=== PATIENT | female | born 1995 | race African-American/Black ===

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

== ENCOUNTER → 2018-09-01 | Day surgery (SDC) | payer OTHER ==
[~2018-09-01] VITALS: Wt 164.2 kg
[~2018-09-01] MED LIST changes: +ABILIFY MAINTE300 MG PO; +AMOXICILLIN500 M3 PO; +AUGMENTIN 875875 MG PO; +BACTRIM DS 8001 TAB PO; +BENZTROPINE MESY1 MG PO; +KETOROLAC10 MG PO; +PRILOSEC20 M1 PO; +PROPRANOLOL HYD10 MG PO; +REMERON15 M2 PO
--- NOTE | ~2018-09-01 | O ---
[place], [place] OPERATIVE NOTE NAME: JAREN GUARDADO UNIT #: [id number] ROOM: DOCTOR: XANDER NIETO DMD BIRTHDATE: [birth year] DOS: PREOPERATIVE DIAGNOSES: Impacted third molars and nonrestorable teeth and anxiety. POSTOPERATIVE DIAGNOSES: Impacted third molars and nonrestorable teeth and anxiety. ANESTHESIA: General anesthesia with endotracheal intubation. FLUIDS: Minimal. ESTIMATED BLOOD LOSS: Minimal. COMPLICATIONS: None. CONDITION: To PACU, stable. DESCRIPTION OF PROCEDURE: The patient was brought to the OR and placed in supine position. IV and EKG lines were placed. Endotracheal intubation and general anesthesia was administered. The patient was prepped and draped for oral procedures. Risks and benefits were explained to the patient prior to surgery. Clinical exam and x-rays taken determined complete bony impaction tooth #1, nonrestorable tooth #2, nonrestorable tooth #15, 18 and 32, soft tissue impaction of 16 and partial bony impaction tooth #17. PROCEDURES PERFORMED: Full thickness flaps in the upper right, upper left and lower left quadrant. Complete extraction of teeth numbers 1, 2, 15, 16, 17, 18 and 32. Minimal alveoplasty sutured with 3-0 Vicryl. Lavaged x 2. Throat pack removed. The patient left the OR in good condition and went to the PACU. XANDER NIETO DMD CM:OPRECORD:OPERATIVE NOTE [id number] XANDER NIETO DMD 09/04/18 1052 interface
[2018-09-01 07:03] VITALS: BP 131/46
[2018-09-01 09:17] VITALS: BP 169/95
[2018-09-01 09:32] VITALS: BP 148/93
[2018-09-01 09:47] VITALS: BP 135/75
[2018-09-01 10:02] VITALS: BP 146/95
[2018-09-01 10:17] VITALS: BP 136/80
== END | disposition home or self-care (01) ==
LOC: SDC 08-28 10:15
DX: K02.9 Dental caries, unspecified (principal); K01.1 Impacted teeth; E66.01 Morbid (severe) obesity due to excess calories; F41.9 Anxiety disorder, unspecified; F32.9 Major depressive disorder, single episode, unspecified; J45.909 Unspecified asthma, uncomplicated; I10 Essential (primary) hypertension; Z87.898 Personal history of other specified conditions; F11.11 Opioid abuse, in remission; Z98.890 Other specified postprocedural states; Z83.3 Family history of diabetes mellitus; Z82.49 Family history of ischemic heart disease and other diseases of the circulatory system; Z88.8 Allergy status to other drugs, medicaments and biological substances; Z79.899 Other long term (current) drug therapy; Z91.018 Allergy to other foods

== ENCOUNTER 2018-09-11 10:19 | Inpatient (IN) | payer OTHER ==
[~2018-09-11] VITALS: Ht 170.1 cm; Wt 159.9 kg
--- NOTE | ~2018-09-11 | CON ---
[place], [place] REPORT OF CONSULTATION NAME: JAREN GUARDADO UNIT #: [id number] ROOM: 425 DOCTOR: XANDER NIETO DMD BIRTHDATE: [birth year] DOS: HISTORY OF PRESENT ILLNESS: Consultation is for pain on the lower left. The patient had third molar extraction under general anesthesia, roughly 2 weeks ago. Extraoral, no swelling noted. No dyspnea, no dysphagia. Intraoral, minimal swelling noted. Tissue looks to be healing adequately. The patient does not complain of any soreness in the upper right, upper left or lower right quadrants, lower left is mild discomfort and malodor on exam. Vicryl sutures still in place and appeared to be resorbing normally. There is a small opening in the left lower mandible. Discussed treatment needed as far as oral hygiene and intraoral irrigation. No alternative treatment is recommended. Does not appear to be infected currently. DISPOSITION: The patient is okay for dental discharge. XANDER NIETO DMD CM:CONSTR:REPORT OF CONSULTATION 0944 09/24/18 0742 interface
--- NOTE | ~2018-09-11 | EKG ---
[place], [place] ELECTROCARDIOGRAM REPORT NAME: JAREN GUARDADO UNIT #: [id number] ROOM: 425 DOCTOR: RAJEEV DRAFT REPORT BIRTHDATE: [birth year] [facility] Test Date: 2018-09-11 Test Time: 16:09:15 Pat Name: JAREN GUARDADO Department: Room: 425 1 Gender: F Public Area Attendant: Elis Charlton : 1995 Requested By: JOSE A STRINGER Order Number: [id number] Reading MD: Kavita Mahmood MD Measurements Intervals [place] Rate: 75 P: -11 CO: 184 QRS: 4 QRSD: 89 T: 12 QT: 398 QTc: 445 Interpretive Statements Sinus rhythm Electronically Signed On 09-15-2018 11:46:37 PST by Kavita Mahmood MD CM:EKGRPT:ELECTROCARDIOGRAM REPORT [id number] JOSE A BOO DRAFT REPORT JOSE A STRINGER
[~2018-09-11 10:19] MED LIST changes: -AMOXICILLIN500 M3 PO; -PROPRANOLOL HYD10 MG PO; -REMERON15 M2 PO
[2018-09-11 11:40] VITALS: BP 143/78
--- NOTE | 2018-09-11 11:40 | NUR ---
Time: 1139 A 23 year old FEMALE admitted to under services of NAHUM WHEATLEY DO. Pt. arrived via ambulatory from CT. Chief complaint: COCAINE ABUSE. DIANDRA GARAY
--- NOTE | 2018-09-11 12:23 | NUR ---
PATIENT MEETS [facility]. CINA=15. PATIENT WANTS TO FOLLOW UP WITH [facility] IN [place] FOR HER AFTERCARE PLAN. [place] STAFF WILL FOLLOW UP WITH PATIENT WITH HER APPOINTMENT. JORDAN BURK B.A. MARKETING OPERATIONS CONSULTANT
[2018-09-11] MEDS ORDERED: PROPRANOLOL HYD10 MG PO (12:32)
[2018-09-11] MEDS ORDERED: REMERON15 M2 PO (12:33)
[2018-09-11] MEDS ORDERED: KETOROLAC10 MG PO (12:34)
[2018-09-11] MEDS ORDERED: AMOXICILLIN500 M3 PO (12:35)
--- NOTE | 2018-09-11 12:51 | NUR ---
[facility] AT [facility]. PATIENT AGREES AND UNDERSTANDS HER AFTERCARE PLAN. JORDAN BURK B.A. VENEER GLUE JOINTER FEEDBACK
[2018-09-11 13:14] LABS: BILIRUBIN NEGATIVE (NEGATIVE); BLOOD NEGATIVE (NEGATIVE); CLARITY SL CLOUDY (CLEAR); COLOR YELLOW (YELLOW); GLUCOSE NEGATIVE (NEGATIVE); KETONE NEGATIVE (NEGATIVE); LEUKO ESTERASE NEGATIVE (NEGATIVE); NITRITE NEGATIVE (NEGATIVE); PH 7.5 (5.0-9.0)
[2018-09-11 13:21] LABS: URINE AMPHETAMINES < 1000 (1000ng/ml); URINE BARBITURATES < 200 (200ng/ml); URINE BENZODIAZEPINES < 200 (200ng/ml); URINE CANNABINOIDS (THC) > 50 (50ng/ml); URINE COCAINE > 300 (300ng/ml); URINE METHADONE < 300 (300ng/ml); URINE OPIATES < 300 (300ng/ml)
[2018-09-11 13:26] LABS: URINE PHENCYCLIDINE < 25 (25ng/ml)
[2018-09-11 13:28] LABS: BASO % 0.2 % (0.0-1.0); EOS # 0.1 10*3/uL (0.0-0.4); EOS % 0.8 % (1.0-4.0); HEMATOCRIT 37.5 % (37.0-47.0); HEMOGLOBIN 12.2 g/dl (12.0-16.0); LYMPH # 2.5 10*3/uL (1.3-4.4); LYMPH % 42.9 % (27.0-41.0); MEAN CELL VOLUME 92.8 fl (81.0-99.0); MEAN CORPUSCULAR HGB 30.2 pg (27.0-31.0); MEAN CORPUSCULAR HGB CONC 32.5 g/dl (33.0-37.0); MONO # 0.4 10*3/uL (0.1-1.0); MONO % 6.8 % (3.0-9.0); NEUT # 2.9 10*3/uL (2.3-7.9); NEUT % 49.1 % (47.0-73.0); PLATELET COUNT AUTOMATED 262 10*3/uL (130-400); RED BLOOD COUNT 4.04 10*6/uL (4.10-5.10); RED CELL DISTRI WIDTH 12.6 % (0-14.5); WHITE BLOOD COUNT 5.9 10*3/uL (4.8-10.8)
[2018-09-11 13:34] LABS: BACTERIA 1+; MUCOUS 1+
[2018-09-11 13:42] LABS: ALBUMIN 3.6 gm/dl (3.1-4.5); ALKALINE PHOSPHATASE 115 U/L (45-117); BUN 13 mg/dl (7-24); CHLORIDE 106 mmol/L (98-107); CREATININE 0.76 mg/dL (0.55-1.02); POTASSIUM 3.9 mmol/L (3.5-5.1); SGOT/AST 25 IU/L (3-35); SGPT/ALT 28 U/L (12-78); SODIUM 140 mmol/L (136-145); TOTAL PROTEIN 8.2 gm/dL (6.4-8.2)
[2018-09-11 13:46] LABS: BETA-HCG, QUANT < 1.0 mIU/mL (1-3); ETHYL ALCOHOL < 3.0 mg/dl (<3)
--- NOTE | 2018-09-11 15:50 | NUR ---
NOTIFIED DR. NIETO OF [facility]. STATED HE WOULD SEE PATIENT TOMORROW.
[2018-09-11 16:00] VITALS: BP 117/50
--- NOTE | 2018-09-11 19:15 | NUR ---
PT RESTING QUIETLY IN BED DURING BEDSIDE SHIFT REPORT. NO S/S OF DISTRESS NOTED. CALL LIGHT IN REACH.
[2018-09-11 20:00] VITALS: BP 135/75
--- NOTE | 2018-09-11 20:14 | NUR ---
PT MEDICATED W/BENTYL FOR STOMACH CRAMPS, VISTARIL FOR ANXIETY AND ZOFRAN FOR C/O NAUSEA. C/O CONSTIPATION BUT REFUSING LAXATIVE UNTIL TOMORROW MORNING. CALL LIGHT IN REACH.
[2018-09-12] VITALS: BP 129/72
--- NOTE | 2018-09-12 06:05 | NUR ---
24 HR chart check completed.
[2018-09-12 08:00] VITALS: BP 128/86
--- NOTE | 2018-09-12 13:00 | NUR ---
PT DENIES ANY NEEDS OR SYMPTOMS OF WITHDRAWAL. ALL SAFETY MEASURES IN PLACE.
--- NOTE | 2018-09-12 13:50 | NUR ---
Shift chart check completed.
--- NOTE | 2018-09-12 14:07 | NUR ---
DR NIETO INTO SEE PT. STATES EVERYTHING LOOKS FINE AND THAT SHE SHOULD RINSE WITH MOUTHWASH PRN.
[2018-09-12 16:00] VITALS: BP 116/54
[2018-09-13] VITALS: BP 122/80
--- NOTE | 2018-09-13 | NUR ---
Patient sleeping. Respirations relaxed and easy. Siderails up . [place]iennes on. DEMARCUS MURRELL
--- NOTE | 2018-09-13 03:48 | NUR ---
24 HR chart check completed.
[2018-09-13 08:00] VITALS: BP 136/75
--- NOTE | 2018-09-13 10:47 | NUR ---
PATIENT COMPLAINS OF BACK PAIN RATED A 5 OR 6. PRN TYLENOL ADMINISTERED.
--- NOTE | 2018-09-13 11:21 | NUR ---
PATIENT STATES THEY ARE CONSTIPATED. HAD ONE SMALL BM YESTERDAY. DOLULAX ADMINSTERED. WILL MONITOR FOR EFFECTIVENESS.
[2018-09-13 16:00] VITALS: BP 122/67
--- NOTE | 2018-09-13 16:36 | NUR ---
MICHAELA MEDINA NP WAS NOTIFIED OF THE PATIENTS COMPLAINT OF A "BUMP" IN THE VAGINAL AREA AND THAT THE PATIENT WISHES TO BE TESTED FOR HEPATITIS.
--- NOTE | 2018-09-13 21:43 | NUR ---
PT DENIES ANY S/S OF WITHDRAWAL. WATCHING MOVIES ON HER CELL PHONE IN BED AT THIS TIME.
[2018-09-14] VITALS: BP 128/78
--- NOTE | 2018-09-14 03:15 | NUR ---
ASSUMED CARE OF THE PATIENT AT THIS TIME. RECEIVED REPORT FROM RODERICK KELLER. PATIENT RESTING COMFORTABLY IN HER BED AT THIS TIME. NO S/S OF DISTRESS. CALL LIGHT WITHIN REACH.
[2018-09-14 07:57] LABS: BASO % 0.2 % (0.0-1.0); EOS # 0.1 10*3/uL (0.0-0.4); EOS % 1.3 % (1.0-4.0); HEMOGLOBIN 11.8 g/dl (12.0-16.0); LYMPH # 2.7 10*3/uL (1.3-4.4); LYMPH % 49.1 % (27.0-41.0); MEAN CELL VOLUME 92.7 fl (81.0-99.0); MEAN CORPUSCULAR HGB 29.6 pg (27.0-31.0); MEAN CORPUSCULAR HGB CONC 31.9 g/dl (33.0-37.0); MEAN PLATELET VOLUME 9.5 fl (9.6-12.3); MONO # 0.4 10*3/uL (0.1-1.0); MONO % 7.9 % (3.0-9.0); NEUT # 2.3 10*3/uL (2.3-7.9); NEUT % 41.3 % (47.0-73.0); PLATELET COUNT AUTOMATED 247 10*3/uL (130-400); RED BLOOD COUNT 3.99 10*6/uL (4.10-5.10); RED CELL DISTRI WIDTH 12.2 % (0-14.5); WHITE BLOOD COUNT 5.5 10*3/uL (4.8-10.8)
[2018-09-14 08:00] VITALS: BP 107/56
--- NOTE | 2018-09-14 11:11 | NUR ---
Discharge instructions reviewed with patient/family. Patient receptive and verbalizes understanding. Follow-up care arranged. Written instructions given to patient/family. DIANDRA GARAY
[2018-09-15 06:06] LABS: HEPATITIS B SURFACE AG Negative (Negative); HEPATITIS C VIRUS ANTIBODY <0.1 s/co (0.0-0.9)
--- NOTE | 2018-11-03 12:57 | NUR ---
PATIENT MEETS [facility]. CINA=15. PATIENT WANTS RESIDENTIAL TREATMENT. [place] STAFF PROVIDED PATIENT WITH A FEW REFFERALS TO DECIDE FROM. [place] STAFF WILL FOLLOW UP WITH PATIENT. JORDAN BURK B.A. CABLE TELEVISION ACCESS COORDINATOR
== END 2018-09-14 11:11 | disposition home or self-care (01) | DRG 897 ==
LOC: 4E 10:19
PROVIDERS: Registered Nurse; ADMIT Internal Medicine
DX: F12.10 Cannabis abuse, uncomplicated (principal); Z68.43 Body mass index [BMI] 50.0-59.9, adult; F14.90 Cocaine use, unspecified, uncomplicated; R03.0 Elevated blood-pressure reading, without diagnosis of hypertension; F41.9 Anxiety disorder, unspecified; J45.909 Unspecified asthma, uncomplicated; E66.01 Morbid (severe) obesity due to excess calories; F32.9 Major depressive disorder, single episode, unspecified; K08.89 Other specified disorders of teeth and supporting structures; R07.9 Chest pain, unspecified; Z91.19 Patient's noncompliance with other medical treatment and regimen; Z83.3 Family history of diabetes mellitus; Z82.49 Family history of ischemic heart disease and other diseases of the circulatory system; Z83.438 Family history of other disorder of lipoprotein metabolism and other lipidemia; Z88.8 Allergy status to other drugs, medicaments and biological substances

== ENCOUNTER 2018-11-03 11:06 | Inpatient (IN) | payer OTHER ==
[~2018-11-03] VITALS: Ht 170.1 cm; Wt 166.3 kg
[~2018-11-03 11:06] MED LIST changes: +AMOXICILLIN500 M3 PO; +PROPRANOLOL HYD10 MG PO; +REMERON15 M2 PO
[2018-11-03 12:00] VITALS: BP 143/82
[2018-11-03] MEDS ORDERED: ZYPREXA10 M1 PO (13:07)
[2018-11-03 13:27] LABS: BASO % 0.3 % (0.0-1.0); EOS # 0.1 10*3/uL (0.0-0.4); EOS % 1.5 % (1.0-4.0); HEMATOCRIT 38.1 % (37.0-47.0); HEMOGLOBIN 12.3 g/dl (12.0-16.0); LYMPH # 3.4 10*3/uL (1.3-4.4); LYMPH % 50.9 % (27.0-41.0); MEAN CELL VOLUME 93.8 fl (81.0-99.0); MEAN CORPUSCULAR HGB 30.3 pg (27.0-31.0); MEAN CORPUSCULAR HGB CONC 32.3 g/dl (33.0-37.0); MEAN PLATELET VOLUME 9.4 fl (9.6-12.3); MONO # 0.5 10*3/uL (0.1-1.0); MONO % 7.4 % (3.0-9.0); NEUT # 2.6 10*3/uL (2.3-7.9); NEUT % 39.7 % (47.0-73.0); PLATELET COUNT AUTOMATED 240 10*3/uL (130-400); RED BLOOD COUNT 4.06 10*6/uL (4.10-5.10); RED CELL DISTRI WIDTH 12.9 % (0-14.5); WHITE BLOOD COUNT 6.6 10*3/uL (4.8-10.8)
[2018-11-03 13:44] LABS: ALBUMIN 3.3 gm/dl (3.1-4.5); ALKALINE PHOSPHATASE 110 U/L (45-117); BUN 11 mg/dl (7-24); CHLORIDE 108 mmol/L (98-107); CREATININE 0.73 mg/dL (0.55-1.02); POTASSIUM 4.1 mmol/L (3.5-5.1); SGOT/AST 26 IU/L (3-35); SGPT/ALT 26 U/L (12-78); SODIUM 141 mmol/L (136-145); TOTAL PROTEIN 7.7 gm/dL (6.4-8.2)
[2018-11-03 13:47] LABS: ETHYL ALCOHOL < 3.0 mg/dl (<3)
[2018-11-03 14:28] LABS: BILIRUBIN NEGATIVE (NEGATIVE); BLOOD NEGATIVE (NEGATIVE); CLARITY CLEAR (CLEAR); COLOR YELLOW (YELLOW); GLUCOSE NEGATIVE (NEGATIVE); KETONE NEGATIVE (NEGATIVE); LEUKO ESTERASE NEGATIVE (NEGATIVE); NITRITE NEGATIVE (NEGATIVE); SPECIFIC GRAVITY 1.025 (1.005-1.030); UROBILINOGEN 0.2 E.U./dl (0.2-1.0)
[2018-11-03 14:34] LABS: BACTERIA 1+; MUCOUS 2+; WBC 0-2 wbc/hpf (0-5)
[2018-11-03 14:37] LABS: URINE AMPHETAMINES < 1000 (1000ng/ml); URINE BARBITURATES < 200 (200ng/ml); URINE BENZODIAZEPINES < 200 (200ng/ml); URINE CANNABINOIDS (THC) > 50 (50ng/ml); URINE COCAINE > 300 (300ng/ml); URINE METHADONE < 300 (300ng/ml); URINE OPIATES < 300 (300ng/ml)
[2018-11-03 14:40] LABS: URINE PHENCYCLIDINE < 25 (25ng/ml)
[2018-11-03 16:00] VITALS: BP 111/54
--- NOTE | 2018-11-03 19:08 | NUR ---
PATIENT SITTING UP ON SIDE OF BED. DENIES ANY NEEDS OR COMPLAINTS AT THIS TIME. BED IS IN L0WEST POSITION WITH WHEELS LOCKED. CALL LIGHT IS WITHIN REACH. ENCOURAGED TO USE CALL LIGHT FOR NEEDS. WILL CONTINUE TO MONITOR.
[2018-11-03 20:00] VITALS: BP 122/68
[2018-11-04] VITALS: BP 123/66
--- NOTE | 2018-11-04 02:14 | NUR ---
PATIENT RESTING IN BED ON LEFT SIDE WITH EYES CLOSED. RESPIRATIONS ARE EASY AND REGULAR. NO DISTRESS IS NOTED. CALL LIGHT IS WITHIN REACH.
[2018-11-04 08:00] VITALS: BP 112/57
--- NOTE | 2018-11-04 08:30 | NUR ---
Patient resting. Responding to scheduled medications with fewer complaints of pain and anxiety.
[2018-11-04 12:00] VITALS: BP 143/85
--- NOTE | 2018-11-04 12:27 | NUR ---
ROUTINE ATIVAN GIVEN AT THIS TIME PER ORDER. NO VOICED COMPLAINTS. WILL CONTINUE TO MONITOR.
--- NOTE | 2018-11-04 14:59 | NUR ---
PATIENT HAS BEEN ACCEPTED TO [facility] [place] FOR RESIDENTIAL TREATMENT. THE FACILITY HAS AN OPEN BED FOR HER ON October.THE FACILITY NEEDS HER TO BE AT THE FACILTIY BY 10:30AM. [place] STAFF WILL FOLLOW UP WITH PATIENT CONCERNING TRANSPORTATION. JORDAN BURK B.A. ROUTE RIDER SUPERVISOR
--- NOTE | 2018-11-04 15:42 | NUR ---
MSPatient signed out AMA. Patient encouraged to stay and advised of possible consequences of premature discharge. Physician MICHAELA MEDINA and tellers supervisor SHELLY notified. Patient instructed what to do regarding care post-departure from the hospital; emergency phone numbers provided. Patent was accompanied by SELF. LUIS ORTEGA
== END 2018-11-04 15:42 | disposition left against medical advice (07) | DRG 894 ==
LOC: 4E 11:06
PROVIDERS: Registered Nurse; ADMIT Internal Medicine
DX: F14.90 Cocaine use, unspecified, uncomplicated (principal); Z68.43 Body mass index [BMI] 50.0-59.9, adult; F41.9 Anxiety disorder, unspecified; F12.10 Cannabis abuse, uncomplicated; I10 Essential (primary) hypertension; K22.0 Achalasia of cardia; G47.00 Insomnia, unspecified; F32.9 Major depressive disorder, single episode, unspecified; E66.01 Morbid (severe) obesity due to excess calories; J45.909 Unspecified asthma, uncomplicated; Z82.49 Family history of ischemic heart disease and other diseases of the circulatory system; Z83.3 Family history of diabetes mellitus; Z88.8 Allergy status to other drugs, medicaments and biological substances; Z79.899 Other long term (current) drug therapy